=== PATIENT | male | born 1955 | race Caucasian/White ===

== ENCOUNTER 2018-10-06 09:27 | Emergency (ER) | payer MEDICARE, OTHER ==
[2018-10-06 09:34] VITALS: BMI 32.5
[2018-10-06] MEDS ORDERED: Oxycodone/Acetaminophen 5/325 mg Tab PO STA (09:51)
[2018-10-06 09:55] VITALS: RESP 18; TEMP 97.8
--- NOTE | 2018-10-06 10:02 | ED PDOC ---
Arrival/HPI - General Chief Complaint: Finger,Hand,&Wrist Time Seen by Provider: 10/06/18 09:28 Historian: Patient, Family - History of Present Illness Narrative History of Present Illness (Text): 10/06/18 09:58 63-year-old male presents today with right wrist pain and swelling since yesterday. Patient states that he thinks he could have twisted his wrist while trying to open a window. Patient denies fevers or chills. He is complaining of pain and swelling from the wrist into the dorsal aspect of the hand. Patient denies numbness weakness or tingling in the extremity. No medications have been taken for pain at home. Past Medical History - Provider Review Nursing Documentation Reviewed: Yes - Travel History Have you recently traveled outside [place] w/in the past 3 mons?: No - Infectious Disease Hx of Infectious Diseases: None - Cardiac Hx Cardiac Disorders: Yes Hx Angina: Yes Hx Atrial Fibrillation: No Hx Cardiac Arrhythmia: No Hx Circulatory Problems: No Hx Congestive Heart Failure: No Hx SC: No Hx Heart Murmur: No Hx Heart Transplant: No Hx Hypertension: Yes Hx Hypotension: No Hx Internal Defibrillator: No Hx Mitral Valve Prolapse: No Hx Pacemaker: No Hx Peripheral Edema: No Hx Peripheral Vascular Disease: No Other/Comment: open heart surgery - Pulmonary Hx Respiratory Disorders: No Hx Asthma: No Hx Bronchitis: No Hx Chronic Obstructive Pulmonary Disease (COPD): No Hx Emphysema: No Hx Lung Cancer: No Hx Pneumonia: No Hx Pulmonary Edema: No Hx Pulmonary Embolism: No Hx Respiratory Aspiration: No Hx Respiratory Tract Infection: No Hx Sleep Apnea: No Hx Tuberculosis: No - Neurological Hx Neurological Disorder: No Hx Alzheimer's Disease: No HX Cerebrovascular Accident: No Hx Dementia: No Hx Dizziness: No Hx Meningitis: No Hx Migraine: No Hx Multiple Sclerosis: No Hx Paralysis: No Hx Parkinson's Disease: No Hx Seizures: No Hx Syncope: No Hx Transient Ischemic Attacks (TIA): No Hx Vertigo: No - HEENT Hx HEENT Disorder: No Hx Blind: No Hx Cataracts: No Hx Deafness: No Hx Difficulty Chewing: No Hx Epistaxis: No Hx Glaucoma: No Hx Macular Degeneration: No - Renal Hx Renal Disorder: No Hx Dialysis: No Hx Kidney Stones: No Hx Neurogenic Bladder: No Hx Pyelonephritis: No Hx Renal Cancer: No Hx Renal Failure: No - Endocrine/Metabolic Hx Endocrine Disorders: No Hx Adrenal Cancer: No Hx Diabetes Insipidus: No Hx Diabetes Mellitus Type 1: No Hx Diabetes Mellitus Type 2: Yes Hx Hyperthyroidism: No Hx Hypothyroidism: No Hx Systemic Lupus Erythematosus: No - Hematological/Oncological Hx Blood Disorders: No Hx AIDS: No Hx Anemia: No Hx Blood Transfusions: No Hx Blood Transfusion Reaction: No Hx Bruising: No Hx Cancer: No Hx Chemotherapy: No Hx Cirrhosis: No Hx Gum Bleeding: No Hx Hemophilia: No Hx Hepatitis A: No Hx Hepatitis B: No Hx Hepatitis C: No Hx Leukemia: No Hx Lymphoma: No Hx Metastasis: No Hx Shingles: No Hx Sickle Cell Trait: No Hx Sickle Cell Disease: No Hx Unexplained Bleeding: No Hx von Willebrand's Disease: No - Integumentary Hx Dermatological Disorder: No Hx Basal Cell Carcinoma: No Hx Lopez: No Hx Cellulitis: No Hx Eczema: No Hx Melanoma: No Hx Psoriasis: No Hx Squamous Cell Carcinoma: No - Musculoskeletal/Rheumatological Hx Musculoskeletal Disorders: No Hx Arthritis: No Hx Back Pain: No Hx Degenerative Joint Disease: No Hx Falls: No Hx Fractures: No Hx Gout: No Hx Herniated Disk: No Hx Myasthenia Gravis: No Hx Osteoarthritis: No Hx Osteomyelitis: No Hx Osteoporosis: No Hx Rhabdomyolysis: No Hx Rheumatoid Arthritis: No Hx Spinal Stenosis: No Hx Unsteady Gait: No - Gastrointestinal Hx Gastrointestinal Disorders: No Hx Bowel Surgery: No Hx Clostridium Difficile: No Hx Colitis: No Hx Colostomy: No Hx Constipation: No Hx Crohn's Disease: No Hx Diarrhea: No Hx Diverticulitis: No Hx Esophageal Varices: No Hx Fatty Liver Disease: No Hx Gall Bladder Disease: No Hx Gastritis: No Hx Gastroesophageal Reflux: No Hx Gastrointestinal Ulcer: Yes Hx Hemorrhoids: No Hx Ileostomy: No Hx Irritable Bowel: No Hx Liver Failure: No Hx Nausea: No Hx Pancreatitis: Yes HX Swallowing Problems: No Hx Vomiting: Yes - Genitourinary/Gynecological Hx Genitourinary Disorders: No Hx Bladder Cancer: No Hx Bladder Stone: No Hx Cervical Cancer: No Hx Hematuria: No Hx Incontinence: No Hx Ovarian Cancer: No Hx Prostate Cancer: No Hx Prostate Problems: No Hx Reproductive Disorders: No Hx Sexually Transmitted Diseases: No Hx Uterine Cancer: No Hx Urinary Tract Infection: No - Psychiatric Hx Psychophysiologic Disorder: No Hx Anxiety: No Hx Bipolar Disorder: No Hx Depression: No Hx Emotional Abuse: No Hx Hallucinations: No Hx Panic Disorder: No Hx Post Traumatic Stress Disorder: No Hx Psychosis: No Hx Physical Abuse: No Hx Schizophrenia: No Hx Sexual Abuse: No Hx Substance Use: No - Surgical History Hx Abdominal Aortic Aneurysm Repair: No Hx Amputation: No Hx Angiogram: No Hx Angioplasty: No Hx Appendectomy: No Hx Arteriovenous Shunt: No Hx Arthroscopy: No Hx Bile Duct Stent: No Hx Breast Biopsy: No Hx Cataract Extraction: Yes Hx Cardiac Catheterization: No Hx Carotid Endarterectomy: No Hx Section: No Hx Cholecystectomy: Yes Hx Coronary Artery Bypass Graft: No Hx Coronary Stent: No Hx Dilation and Curettage: No Hx Eye Surgery: No Hx Femoral-Popliteal Bypass Graft: No Hx Gastric Bypass Surgery: No Hx Hysterectomy: No Hx Joint Replacement: No Hx Kidney Transplant: No Hx Liver Transplant: No Hx Mastectomy: No Hx Musculoskeletal Surgery: No Hx Open Heart Surgery: Yes Hx Open Reduction Internal Fixation: No Hx Orthopedic Surgery: No Hx Parathyroidectomy: No Hx Penile Implant: No Hx Pulmonary Surgery: No Hx Splenectomy: No Hx Thyroidectomy: No Hx Tonsillectomy: No Hx Tubal Ligation: No Hx Valve Replacement: No Hx Vascular Surgery: No Hx Vascular Access Device: No - Anesthesia Hx Anesthesia: Yes Hx Anesthesia Reactions: No Hx Malignant Hyperthermia: No - Suicidal Assessment Feels Threatened In Home Enviroment: No Family/Social History - Physician Review Nursing Documentation Reviewed: Yes Family/Social History: Unknown Family HX Smoking Status: Never Smoked Hx Alcohol Use: No Hx Substance Use: No Allergies/Home Meds Allergies/Adverse Reactions: Allergies No Known Allergies Allergy (Verified 10/06/18 09:34) Home Medications: Home Meds Medication Instructions Recorded Confirmed Atorvastatin [Lipitor] 1 tab PO HS 10/06/18 10/06/18 Carvedilol [Coreg] 1 tab PO DAILY 10/06/18 10/06/18 Enalapril Maleate [Vasotec] 1 tab PO DAILY 10/06/18 10/06/18 Ergocalciferol [Drisdol 50,000 1 cap PO Q7D 10/06/18 10/06/18 Intl Units Cap] Famotidine [Pepcid] 1 tab PO DAILY 10/06/18 10/06/18 Furosemide [Lasix] 1 tab PO DAILY 10/06/18 10/06/18 Loratadine [Claritin] 1 tab PO DAILY 10/06/18 10/06/18 Warfarin [Coumadin] 7 mg PO DAILY 10/06/18 10/06/18 amLODIPine [Norvasc] 1 tab PO DAILY 10/06/18 10/06/18 metFORMIN [glucOPHAGE] 1 tab PO DAILY 10/06/18 10/06/18 Review of Systems - Review of Systems Constitutional: absent: Fatigue, Fevers Respiratory: absent: SOB, Cough Cardiovascular: absent: Chest Pain, Palpitations Gastrointestinal: absent: Abdominal Pain, Nausea, Vomiting Musculoskeletal: Arthralgias, Joint Swelling Skin: absent: Rash, Pruritis Neurological: absent: Headache, Dizziness Psychiatric: absent: Anxiety, Depression Physical Exam Vital Signs Reviewed: Yes Vital Signs Temp Pulse Resp BP Pulse Ox 10/06/18 09:44 97.8 F 86 18 148/88 96 Temperature: Afebrile Blood Pressure: Normal Pulse: Regular Respiratory Rate: Normal Appearance: Positive for: Well-Appearing, Non-Toxic, Comfortable Pain Distress: None Mental Status: Positive for: Alert and Oriented X 3 - Systems Exam Head: Present: Atraumatic Neck: Present: Normal Range of Motion Respiratory/Chest: Present: Clear to Auscultation Cardiovascular: Present: Regular Rate and Rhythm Upper Extremity: Present: NORMAL PULSES, Tenderness (right hand/wrist; + edema noted to wrist and dorsal hand; + warmth. + minimal erythema along dorsal aspect of wrist. + rom of wrist with pain; sensation and distal pulses intact. cap refill <2. no proximal forearm tenderness or swelling. no streaking erythema. full rom of elbow. ), Swelling, Erythema, Neurovascularly Intact, Capillary Refill < 2s. No: Normal ROM Neurological: Present: GCS=15, Speech Normal Skin: Present: Warm, Dry Psychiatric: Present: Alert, Oriented x 3 Medical Decision Making ED Course and Treatment: 10/06/18 10:07 63yr old diabetic male with right hand/wrist pain swelling. no trauma or injury. perocet given for pain. cbc; wnl cmp; wnl INR; 3.75 xray right wrist; no fracture duplex right arm; no DVT pt reassessement; pt feeling better. pt with improved ROM Of wrist. still with erythema, tenderness and swelling. pt refused IV abx and refused to be hospitalized for cellulitis of hand/wrist. 10/06/18 11:57 Patient has been advised to not leave the emergency room but has decided to go AGAINST MEDICAL ADVICE. The patient possesses capacity to make decisions and has voiced understanding to all my warnings of potential worsening of the condition for which medical care was sought. I have discussed all known and potential risks and consequences to the patient leaving AGAINST MEDICAL ADVICE. Patient is leaving against medical advise. AMA form signed. witness by MARGIE Dunn. seat cover installer Benefits Officer; [employer] insulation board calender operator #[id number] pt was advised to return immediately if symptoms worsen,persist or if new symptoms develop and to take medications as prescribed. pts son states he will keep and eye on the wrist and make the patient return if symptoms worsen. All aspects of this case were discussed the attending of record. impression; cellulitis, hand/wrist Return immediately if you wish to continue your care tramadol every 6 hours as needed for moderate to severe pain keflex; 1 tablet 4 times daily x 7 days follow up with the PMD G[facility]ALES Follow up with the orthopedist GONZALES return immediately if symptoms worsen,persist or if new symptoms develop. - RAD Interpretation Radiology Orders: 10/06/18 09:51 WRIST, RIGHT 3 VIEWS [RAD] Stat - Medication Orders Current Medication Orders: Discontinued Medications Oxycodone/Acetaminophen (Percocet 5/325 Mg Tab) 1 tab PO STAT STA Stop: 10/06/18 09:52 Disposition/Present on Arrival - Present on Arrival Any Indicators Present on Arrival: No History of DVT/PE: No History of Uncontrolled Diabetes: No Urinary Catheter: No History of Decub. Ulcer: No History Surgical Site Infection Following: None - Disposition Have Diagnosis and Disposition been Completed?: Yes Diagnosis: Cellulitis of hand, Cellulitis of wrist Disposition: AGAINST MEDICAL ADVICE Disposition Time: 11:59 Patient Plan: Discharge Condition: FAIR Discharge Instructions (ExitCare): Cellulitis (ED) Additional Instructions: Return immediately if you wish to continue your care tramadol every 6 hours as needed for moderate to severe pain keflex; 1 tablet 4 times daily x 7 days follow up with the PMD GONZALES Follow up with the orthopedist GONZALES return immediately if symptoms worsen,persist or if new symptoms develop. Prescriptions: Cephalexin [Keflex] 500 mg PO QID #28 capsule traMADol [Ultram] 50 mg PO Q6H PRN #6 tab PRN Reason: moderate to severe pain Referrals: Giancarlo Arora III, MD [Medical Doctor] - Follow up with primary Stephania Gresham MD [Medical Doctor] - Follow up with primary Medical Technologist Generalist Service [Outside] - Follow up with primary Forms: [employer] ([place]ian)
[2018-10-06 10:17] LABS: BASO # 0.01 K/mm3 (0.0-2.0); BASO % 0.1 % (0.0-3.0); EOS % 0.4 % (1.5-5.0); LYMPH # 1.4 (1.2-3.4); LYMPH % 16.5 % (22.0-35.0); MEAN CORPUSCULAR HEMOGLOBIN 28.6 pg (25.0-35.0); MEAN CORPUSCULAR HGB CONC 32.8 g/dl (31.0-37.0); MEAN PLATELET VOLUME 8.9 fl (7.0-11.0); MONO # 1.2 (0.1-0.6); RBC 4.55 10^6/uL (3.5-6.1); RED CELL DISTRIBUTION WIDTH 13.3 % (11.5-14.5); WHITE BLOOD COUNT 8.2 10^3/uL (4.5-11.0)
[2018-10-06 10:28] LABS: ALB/GLOB RATIO 1.3 (1.1-1.8); ALBUMIN 4.6 g/dL (3.0-4.8); ALT/SGPT 20 U/L (7-56); AST/SGOT 30 U/L (17-59); BLOOD UREA NITROGEN 11 mg/dL (7-21); CALCIUM 9.6 mg/dL (8.4-10.5); GFR NON-AFRICAN AMERICAN > 60
[2018-10-06 10:36] LABS: PARTIAL THROMBOPLASTIN TIME 47.7 Seconds (26.9-38.3)
[2018-10-06 10:41] LABS: INR 3.73; PROTHROMBIN TIME 42.1 SECONDS (9.4-12.5)
--- NOTE | 2018-10-06 10:55 | RAD ---
Date of service: 10/06/2018 PROCEDURE: Right Wrist Radiographs. HISTORY: wrist injury COMPARISON: None. FINDINGS: BONES: Normal. No fracture. JOINTS: Normal. No dislocation. SOFT TISSUES: Normal. OTHER FINDINGS: None. IMPRESSION: Normal right wrist radiographs.
[2018-10-06 12:21] VITALS: BP 136/84; PULSE 80; O2SAT 97
--- NOTE | 2018-10-06 14:00 | US ---
PROCEDURE: Right upper extremity venous US CLINICAL HISTORY: Arm pain and swelling Evaluate for deep venous thrombosis. PHYSICIAN(S): Calvin Rose M.D FINDINGS: The visualized rightinternal jugular vein is sonographically normal and compressible. No evidence of obstruction or thrombus is seen. The visualized segments of the right subclavian vein are patent with normal waveforms. No sonographic evidence of obstruction or thrombosis is seen. The visualized deep venous system of the proximal right upper extremity is sonographically normal and compressible. IMPRESSION: 1. No sonographic evidence for deep venous thrombosis in the visualized segments of the right upper extremity.
== END 2018-10-06 12:22 | disposition left against medical advice (07) ==
LOC: ED 09:27
DX: L03.113 Cellulitis of right upper limb (principal); E11.9 Type 2 diabetes mellitus without complications; I10 Essential (primary) hypertension